=== PATIENT | male | born 1955 | race Caucasian/White ===

== ENCOUNTER → 2019-03-30 | Outpatient (CLI) | payer MEDICARE, BC ==
--- NOTE | 2019-03-30 12:41 | RADIOLOGY REPORT (SQ) ---
EXAM DESCRIPTION: CAROTID DOPPLER COMPLETED DATE/TIME: 03/30/2019 10:39 am REASON FOR STUDY: BRUIT R01.1 CARDIAC MURMUR, UNSPECIFIED R09.89 OTH SYMPTOMS AND SIGNS INVOLVING THE CIRC AND RESP SY COMPARISON: None. TECHNIQUE: Grayscale ultrasound, Doppler velocity and spectra, and color Doppler images acquired of the extra-cranial carotid and vertebral arteries. Images stored on PACS. LIMITATIONS: None. FINDINGS: RIGHT CAROTID CCA Velocities: Within normal limits. ICA Velocities Peak systolic 53 cm/s. End diastolic 21 cm/s. Proximal ICA/CCA peak systolic ratio 1.17. Spectra normal. No significant plaque. LEFT CAROTID CCA Velocities: Within normal limits. ICA Velocities Peak systolic 61 cm/s. End diastolic 23 cm/s. Proximal ICA/CCA peak systolic ratio 0.92. Spectra normal. No significant plaque. VERTEBRAL ARTERIES: Antegrade flow. Normal waveforms. SUBCLAVIAN ARTERIES: No finding. OTHER: No other significant finding. IMPRESSION: NO HEMODYNAMICALLY SIGNIFICANT STENOSIS. COMMENT: Quality ID #[id number]: Velocity criteria are extrapolated from the diameter data as defined by t he Society of Radiologists in Ultrasound Consensus Conference. Radiology 2003: 229; 340-346. TECHNICAL DOCUMENTATION: JOB ID: [id number] [employer]- All Rights Reserved Reading location - IP/workstation name: [email or web address]
--- NOTE | 2019-03-31 21:20 | XCELERA REPORT ---
[address] [address] Transthoracic Echocardiogram Report Name: ORIANA THOMAS Age: 63 yrs Gender: Male : 1955 Patient Status: Outpatient Patient Location: Study Date: 03/30/2019 08:41 AM Height: 72 in Weight: 200 lb BSA: 2.1 m2 Procedure: A two-dimensional transthoracic echocardiogram with color flow and Doppler was performed. Study Quality: Fair. Reason For Study: MURMUR History: MURMUR. Ordering Physician: OCTAVIA SILVA Performed By: Daija Heard Interpretation Summary The left ventricle is normal in size. There is normal left ventricular wall thickness. The left ventricular ejection fraction is within normal limits. LV EF is > than 65% Doppler measurements suggest normal left ventricular diastolic function The left ventricular wall motion is normal. There is no thrombus. No ASD , VSD ,or PFO seen. The right ventricle is normal in size and function. The right atrium is normal. The left atrium is mildly dilated. There is no evidence of mitral valve prolapse. There is no vegetation seen on the mitral valve. There is no mitral valve stenosis. There is a trace amount of mitral regurgitation There is no aortic valvular vegetation. There is no aortic valve stenosis There is aortic sclerosis without aortic stenosis. There is no LVOT obstruction. There is a trace to mild amount of aortic regurgitation There is no tricuspid stenosis. There is a trace amount of tricuspid regurgitation Right ventricular systolic pressure is at the upper limits of normal RVSP is 25 to 30 mm of Hg , with RA mean of 5 to 10. There is no pulmonic valvular stenosis. There is no pulmonic valvular regurgitation. The aortic root is normal size. The inferior vena cava appeared normal and decreased > 50% with respiration (RAP 5-10 mmHg) There is no pericardial effusion. MMode/2D Measurements & Calculations IVSd: 0.86 cm LVIDd: 5.0 cm FS: 52.2 % Ao root diam: 3.0 cm LVIDs: 2.4 cm EDV(Teich): LVPWd: 1.0 cm 118.9 ml Ao root area: ESV(Teich): 7.3 cm2 20.1 ml EF(Teich): 83.1 % EDV(MOD-sp4): SV(MOD-sp4): 113.8 ml 80.8 ml ESV(MOD-sp4): 33.0 ml EF(MOD-sp4): 71.0 % Doppler Measurements & Calculations MV E max lorie: MV dec slope: Ao V2 max: AI max lorie: 87.2 cm/sec 192.7 cm/sec 399.8 cm/sec MV A max lorie: 418.8 cm/sec2 Ao max PG: AI max P.9 mmHg 73.5 cm/sec MV dec time: 14.9 mmHg AI dec slope: MV E/A: 1.2 0.21 sec Ao V2 mean: 123.7 cm/sec 190.5 cm/sec2 AI P1/2t: 614.7 msec Ao mean P.1 mmHg Ao V2 VTI: 39.2 cm LV V1 max PG: PA V2 max: TR max lorie: 7.3 mmHg 108.7 cm/sec 226.0 cm/sec LV V1 mean PG: PA max P.7 mmHg TR max P.4 mmHg 20.4 mmHg LV V1 max: 135.3 cm/sec LV V1 mean: 87.2 cm/sec LV V1 VTI: 29.4 cm Left Ventricle The left ventricle is normal in size. There is normal left ventricular wall thickness. The left ventricular ejection fraction is within normal limits. LV EF is > than 65%. Doppler measurements suggest normal left ventricular diastolic function. The left ventricular wall motion is normal. There is no thrombus. No ASD , VSD ,or PFO seen. Right Ventricle The right ventricle is normal in size and function. Atria The right atrium is normal. The left atrium is mildly dilated. Mitral Valve There is no evidence of mitral valve prolapse. There is no vegetation seen on the mitral valve. There is no mitral valve stenosis. There is a trace amount of mitral regurgitation. Aortic Valve There is no aortic valvular vegetation. There is no aortic valve stenosis. There is aortic sclerosis without aortic stenosis. There is no LVOT obstruction. There is a trace to mild amount of aortic regurgitation. Tricuspid Valve There is no tricuspid stenosis. There is a trace amount of tricuspid regurgitation. Right ventricular systolic pressure is at the upper limits of normal. RVSP is 25 to 30 mm of Hg , with RA mean of 5 to 10. Pulmonic Valve There is no pulmonic valvular stenosis. There is no pulmonic valvular regurgitation. Great Vessels The aortic root is normal size. The inferior vena cava appeared normal and decreased > 50% with respiration (RAP 5-10 mmHg). Effusions There is no pericardial effusion. : OCTAVIA SILVA > Twila Dorado
== END ==
LOC: SP 08:29
PROVIDERS: ATTEND Family Medicine
DX: R01.1 Cardiac murmur, unspecified (principal); R09.89 Other specified symptoms and signs involving the circulatory and respiratory systems
CPT/HCPCS: 93306; 93880

== ENCOUNTER 2019-06-01 06:27 | Day surgery (SDC) | payer MEDICARE, BC ==
[~2019-06-01 06:27] MED LIST: KETOROLAC TROMETHAMINE 0.45% 4 DROP/0.4 ML DROPERETTE OD PRN
[2019-06-01] MEDS: TROPICAMIDE 1% OPH SOLN 3 ML OD PRN ×3 (06:41→07:07)
[2019-06-01] MEDS: TETRACAINE HCL 0.5% OPH SOLN 4 ML OD PRN ×3 (06:41→07:26)
[2019-06-01] MEDS: CYCLOPENTOLATE 0.2%/PHENYLEPHRINE 1% OPH SOLN 2 ML OD PRN ×3 (06:42→07:07)
[2019-06-01] MEDS: BESIFLOXACIN HCL 0.6% OPH SUSP 5 ML BOTTLE OD PRN ×4 (06:42→07:46)
[2019-06-01] MEDS ORDERED: FENTANYL CITRATE INJ/PF 100 MCG/2 ML AMPUL ONE (07:04)
[2019-06-01] MEDS ORDERED: MIDAZOLAM 2 MG/2 ML INJ ONE (07:04)
[2019-06-01] MEDS ORDERED: TOBRAMYCIN SULFATE/DEXAMETH OPH OINTMENT 3.5 GM ONE (07:10)
[2019-06-01] MEDS ORDERED: EPINEPHRINE INJ/PF 1 MG/1 ML AMPULE ONE (07:10)
[2019-06-01] MEDS ORDERED: CHONDR SU A NA/HYALUR INTRAOC KIT (SURGICARE) ONE (07:10)
[2019-06-01] MEDS ORDERED: LIDOCAINE 1% INJ-PF (10 MG/ML) 30 ML SDV ONE (07:10)
[2019-06-01] MEDS ORDERED: LIDOCAINE 1%/PHENYLEPHRINE 1.5% 1 ML VIAL ONE (07:18)
[2019-06-01] MEDS: DORZOLAMIDE HCL 2%/TIMOLOL MALEAT 0.5% OPH SOLN 10 ML OD PRN ×2 (07:46)
== END 2019-06-01 08:23 | disposition home or self-care (01) ==
LOC: SC 06:27
PROVIDERS: ATTEND Ophthalmology
DX: H25.11 Age-related nuclear cataract, right eye (principal); I10 Essential (primary) hypertension; E78.00 Pure hypercholesterolemia, unspecified; F17.210 Nicotine dependence, cigarettes, uncomplicated; K21.9 Gastro-esophageal reflux disease without esophagitis; Z79.899 Other long term (current) drug therapy; Z79.84 Long term (current) use of oral hypoglycemic drugs
CPT/HCPCS: 66982; 82962; 00142; J2250; J3490 ×3; A9270; J0171; J3010; J2370; 142; V2632

== ENCOUNTER 2019-06-15 06:22 | Day surgery (SDC) | payer MEDICARE, BC ==
[~2019-06-15 06:22] MED LIST changes: -KETOROLAC TROMETHAMINE 0.45% 4 DROP/0.4 ML DROPERETTE OD PRN; +KETOROLAC TROMETHAMINE 0.45% 4 DROP/0.4 ML DROPERETTE OS PRN
[2019-06-15] MEDS: TROPICAMIDE 1% OPH SOLN 3 ML OS PRN ×3 (06:46→07:06)
[2019-06-15] MEDS: BESIFLOXACIN HCL 0.6% OPH SUSP 5 ML BOTTLE OS PRN ×4 (06:46→07:45)
[2019-06-15] MEDS: CYCLOPENTOLATE 0.2%/PHENYLEPHRINE 1% OPH SOLN 2 ML OS PRN ×3 (06:46→07:06)
[2019-06-15] MEDS: TETRACAINE HCL 0.5% OPH SOLN 4 ML OS PRN ×3 (06:47→07:26)
[2019-06-15] MEDS ORDERED: MIDAZOLAM 2 MG/2 ML INJ ONE (06:56)
[2019-06-15] MEDS ORDERED: FENTANYL CITRATE INJ/PF 100 MCG/2 ML AMPUL ONE (06:56)
[2019-06-15] MEDS ORDERED: EPINEPHRINE INJ/PF 1 MG/1 ML AMPULE ONE (07:08)
[2019-06-15] MEDS ORDERED: LIDOCAINE 1% INJ-PF (10 MG/ML) 30 ML SDV ONE (07:09)
[2019-06-15] MEDS ORDERED: CHONDR SU A NA/HYALUR INTRAOC KIT (SURGICARE) ONE (07:09)
[2019-06-15] MEDS ORDERED: LIDOCAINE 1%/PHENYLEPHRINE 1.5% 1 ML VIAL ONE (07:13)
[2019-06-15] MEDS: TOBRAMYCIN SULFATE/DEXAMETH OPH OINTMENT 3.5 GM ONE ×2 (07:45)
[2019-06-15] MEDS: DORZOLAMIDE HCL 2%/TIMOLOL MALEAT 0.5% OPH SOLN 10 ML OS PRN ×2 (07:45)
== END 2019-06-15 08:30 | disposition home or self-care (01) ==
LOC: SC 06:22
PROVIDERS: ATTEND Ophthalmology
DX: H25.12 Age-related nuclear cataract, left eye (principal); Z98.41 Cataract extraction status, right eye; I10 Essential (primary) hypertension; E78.00 Pure hypercholesterolemia, unspecified; K21.9 Gastro-esophageal reflux disease without esophagitis; Z79.899 Other long term (current) drug therapy; Z79.84 Long term (current) use of oral hypoglycemic drugs; Z87.891 Personal history of nicotine dependence
CPT/HCPCS: 66984; 82962; 00142; J2250; J3490 ×3; A9270; J0171; J3010; J2370; 142